=== PATIENT | female | born 1995 | race Two or more races ===

== ENCOUNTER 2017-06-16 17:50 | Emergency (ER) | payer MEDICAID, OTHER ==
[~2017-06-16] VITALS: Ht 147.3 cm; Wt 72.6 kg
[~2017-06-16 17:50] MED LIST: FLUO10CA26 PO; LORA-259 PO; NORE1TAB21 PO; OLAN5TAB3 PO
--- NOTE | 2017-06-16 18:02 | NUR ---
PT [facility] BED 14. C/O ANXIETY AND HEADACHE X TODAY. GOWNED AND PLACED ON MONITOR. STABLE VITALS. NORMA CASSIDY.
--- NOTE | 2017-06-16 18:10 | NUR ---
VERONICA CLIFTON AT BEDSIDE FOR EVAL.
[2017-06-16] MEDS ORDERED: LORAZEPAM 1 MG TABLET ONE (18:28)
[2017-06-16] MEDS ORDERED: ONDANSETRON 4 MG TAB.RAPDIS ONE (18:29)
[2017-06-16] MEDS ORDERED: ONDANSETRON 4 MG TAB.RAPDIS SL ONE (18:30)
[2017-06-16] MEDS ORDERED: LORAZEPAM 1 MG TABLET PO ONE (18:30)
[2017-06-16 20:00] VITALS: BP 157/111
--- NOTE | 2017-06-16 20:00 | NUR ---
Patient discharged to home in stable condition. Written and verbal after care instructions given. Patient verbalizes understanding of instruction.
== END 2017-06-16 20:01 | disposition home or self-care (01) ==
LOC: ER 17:51
DX: F41.9 Anxiety disorder, unspecified (principal); R11.0 Nausea; F31.9 Bipolar disorder, unspecified; F10.10 Alcohol abuse, uncomplicated; F17.200 Nicotine dependence, unspecified, uncomplicated
CPT/HCPCS: 99284; A4606; Q0162; Z7610

== ENCOUNTER 2018-12-01 05:34 | Emergency (ER) | payer BC, MEDICAID ==
[~2018-12-01] VITALS: Ht 147.3 cm; Wt 79.4 kg
[2018-12-01 05:36] VITALS: BP 147/93
[2018-12-01] MEDS ORDERED: DEXAMETHASONE SOLN 5 MG/5 ML UDC ONE (05:49)
[2018-12-01] MEDS ORDERED: IBUPROFEN 200 MG TABLET ONE (05:50)
[2018-12-01] MEDS ORDERED: DEXAMETHASONE 1 MG TABLET PO ONE (06:00)
[2018-12-01] MEDS ORDERED: IBUPROFEN 400 MG TABLET PO ONE (06:00)
--- NOTE | 2018-12-01 06:06 | NUR ---
Patient discharged to home in stable condition. Written and verbal after care instructions given. Patient verbalizes understanding of instruction. Pt ambulatory with a steady gait
== END 2018-12-01 06:08 | disposition home or self-care (01) ==
LOC: ER 05:34
DX: J02.0 Streptococcal pharyngitis (principal); F41.9 Anxiety disorder, unspecified; F32.9 Major depressive disorder, single episode, unspecified; F17.200 Nicotine dependence, unspecified, uncomplicated; Z79.899 Other long term (current) drug therapy
CPT/HCPCS: 99283; J8540

== ENCOUNTER 2019-07-08 13:43 | Emergency (ER) | payer BC, MEDICAID ==
[~2019-07-08] VITALS: Ht 147.3 cm; Wt 77.1 kg
--- NOTE | 2019-07-08 14:00 | NUR ---
patient came in to the ER c/o nausea vomiting x 4 days, on room air, breathing evenly and unlabored, kept comfortable, will continue to monitor accordingly.
[2019-07-08] MEDS ORDERED: LORAZEPAM INJ 2 MG/ML VIAL IM ONE (17:30)
[2019-07-08] MEDS ORDERED: ONDANSETRON 4 MG TAB.RAPDIS SL ONE (17:30)
[2019-07-08] MEDS ORDERED: ONDANSETRON 4 MG TAB.RAPDIS ONE (17:52)
[2019-07-08] MEDS ORDERED: LORAZEPAM 1 MG TABLET ONE (17:52)
[2019-07-08] MEDS ORDERED: LORAZEPAM INJ 2 MG/ML VIAL ONE (17:55)
[2019-07-08 18:40] VITALS: BP 128/71
--- NOTE | 2019-07-08 18:40 | NUR ---
Patient discharged to home in stable condition. Written and verbal after care instructions given. Patient verbalizes understanding of instruction.
== END 2019-07-08 18:40 | disposition home or self-care (01) ==
LOC: ER 13:46
DX: J40 Bronchitis, not specified as acute or chronic (principal); R11.2 Nausea with vomiting, unspecified; F41.9 Anxiety disorder, unspecified; F31.9 Bipolar disorder, unspecified; F10.10 Alcohol abuse, uncomplicated; F17.200 Nicotine dependence, unspecified, uncomplicated; Y90.9 Presence of alcohol in blood, level not specified; Z79.899 Other long term (current) drug therapy
CPT/HCPCS: 71045; 93005; 96372; 99283; J2060; Q0162; J7030; J7040

== ENCOUNTER 2020-03-08 15:17 | Emergency (ER) | payer BC, MEDICAID ==
[~2020-03-08] VITALS: Ht 147.3 cm; Wt 76.2 kg
[2020-03-08 15:17] VITALS: BP 118/82
== END 2020-03-08 15:50 | disposition home or self-care (01) ==
LOC: ER 15:25
DX: R22.0 Localized swelling, mass and lump, head (principal); T39.015A Adverse effect of aspirin, initial encounter; Z79.899 Other long term (current) drug therapy; Y92.89 Other specified places as the place of occurrence of the external cause

== ENCOUNTER 2021-02-21 12:01 | Emergency (ER) | payer BC, MEDICAID ==
[~2021-02-21] VITALS: Ht 147.3 cm; Wt 68.0 kg
[2021-02-21] MEDS ORDERED: LORAZEPAM 1 MG TABLET ONE (12:26)
[2021-02-21] MEDS ORDERED: ONDANSETRON 4 MG TAB.RAPDIS ONE (12:26)
[2021-02-21] MEDS: ONDANSETRON 4 MG TAB.RAPDIS SL ONE (12:30)
[2021-02-21] MEDS: LORAZEPAM 1 MG TABLET PO ONE (12:30)
--- NOTE | 2021-02-21 12:30 | NUR ---
Patient caMe in to the er c/o panic attack. on room air, breathing evenly and unlabored. kept comfortable, will continue to monitor accordingly.
[2021-02-21] MEDS ORDERED: ONDA4TAB11 PO (13:08)
[2021-02-21 13:42] VITALS: BP 121/67
--- NOTE | 2021-02-21 13:49 | NUR ---
Patient discharged to home in stable condition. Written and verbal after care instructions given. Patient verbalizes understanding of instruction.
== END 2021-02-21 13:49 | disposition home or self-care (01) ==
LOC: ER 12:01
DX: F41.9 Anxiety disorder, unspecified (principal); R11.0 Nausea; F32.9 Major depressive disorder, single episode, unspecified; F17.200 Nicotine dependence, unspecified, uncomplicated; Z79.899 Other long term (current) drug therapy
CPT/HCPCS: 70450; 99284; Q0162

== ENCOUNTER 2024-07-09 11:52 | Emergency (ER) | payer BC, OTHER ==
[~2024-07-09] VITALS: Ht 147.3 cm; Wt 56.7 kg
[~2024-07-09 11:52] MED LIST changes: +ONDA4TAB11 PO
[2024-07-09 13:26] LABS: BASOPHILS % (AUTO) 0.5 % (0.0-2.0); HEMATOCRIT 45 % (33-45); HEMOGLOBIN 14.9 g/dL (11.5-14.8); LYMPHOCYTES # (AUTO) 1.9 K/uL (0.8-4.8); LYMPHOCYTES % (AUTO) 29.5 % (20.0-44.0); MEAN CORPUSCULAR HEMOGLOBIN 29 PG (26.0-33.0); MEAN CORPUSCULAR HGB CONC 33 g/dl (31.0-36.0); MEAN CORPUSCULAR VOLUME 88 fL (82-100); MONOCYTES # (AUTO) 0.4 K/uL (0.1-1.30); MONOCYTES % (AUTO) 6.2 % (2.0-12.0); NEUTROPHILS # (AUTO) 4.1 K/uL (1.8-8.9); NEUTROPHILS % (AUTO) 63.8 % (43.0-81.0); PLATELET COUNT (AUTO) 397 K/uL (150-450); RED BLOOD CELL COUNT(AUTO) 5.12 MIL/uL (4.0-5.2); RED CELL DISTRIBUTION WIDTH 13.2 % (11.5-15.0); WHITE BLOOD COUNT (AUTO) 6.4 K/uL (4.3-11.0)
[2024-07-09 13:34] LABS: APPEARANCE,URINE SLIGHTLY CLOUDY (CLEAR); BILIRUBIN,URINE 1+ (NEGATIVE); BLOOD, URINE 3+ Ery/uL (NEGATIVE); COLOR,URINE YELLOW (YELLOW); KETONES,URINE 3+ mg/dL (NEGATIVE); LEUKOCYTE ESTERASE ,URINE NEGATIVE (NEGATIVE); NITRITE, URINE NEGATIVE (NEGATIVE); PROTEIN,URINE 1+ mg/dl (NEGATIVE); UGLUCOSE NEGATIVE (NEGATIVE); UROBILINOGEN,URINE 0.2 EU/dL (0.2)
[2024-07-09 13:35] LABS: CALCIUM, SERUM 9.7 mg/dL (8.5-10.1); CREATININE 0.7 mg/dL (0.6-1.3); POTASSIUM 3.4 mmol/L (3.5-5.1)
[2024-07-09 13:37] LABS: ADD URINE CULTURE NO; BACTERIA,URINE Rare /HPF (None Seen); RBC,URINE TOO NUMEROUS TO COUN /HPF (0-2); SQUAMOUS EPITHELIAL CELL,UR Few /HPF (None Seen); WBC,URINE 0-2 /HPF (0-3)
[2024-07-09] MEDS ORDERED: CEPH-570 PO ×2 (13:38→15:56)
[2024-07-09] MEDS ORDERED: CEFTRIAXONE 1GM BAG (ER ONLY) 50 ML IV ONE (14:12)
[2024-07-09] MEDS ORDERED: KETOROLAC TROMETHAMINE 15 MG/ML VIAL ONE (14:12)
[2024-07-09] MEDS: CEFTRIAXONE 1GM BAG (ER ONLY) 50 ML IV ONE (14:22)
[2024-07-09] MEDS: IV NS 0.9% 1,000 ML BAG IV ONE (14:22)
[2024-07-09 15:31] LABS: PREGNANCY TEST URINE QUAL NEGATIVE (NEGATIVE)
[2024-07-09] MEDS: KETOROLAC TROMETHAMINE 15 MG/ML VIAL IV ONE (15:55)
[2024-07-09 16:59] VITALS: BP 128/84; TEMP 97.9; O2SAT 98
== END 2024-07-09 17:00 | disposition home or self-care (01) ==
LOC: ER 12:02
DX: N39.0 Urinary tract infection, site not specified (principal); R31.9 Hematuria, unspecified; F17.200 Nicotine dependence, unspecified, uncomplicated; F41.9 Anxiety disorder, unspecified; F31.9 Bipolar disorder, unspecified; Z79.899 Other long term (current) drug therapy
CPT/HCPCS: 99285; 74176; 96365; 96375; 85025; 80048; 87086; 84703; 81001; 36415; J1885; J7030; J0696